=== PATIENT | male | born 1960 | race Caucasian/White ===

== ENCOUNTER → 2017-04-27 | Outpatient (CLI) | payer OTHER ==
--- NOTE | 2017-04-27 12:12 | KCIC ---
Chest radiograph 04/27/2017 12:00 AM INDICATION: Bronchitis COMPARISON: None available TECHNIQUE: Frontal and lateral views of the chest are provided. FINDINGS: The cardiomediastinal silhouette is within normal limits. There are no pleural effusions. There is no pulmonary vascular congestion. There is no pneumothorax. The lungs are clear. Anterior marginal osteophytosis is noted throughout the thoracic spine. IMPRESSION: No acute cardiopulmonary process. Electronically signed by: Jennifer Tam MD (04/27/2017 12:09 PM) [place] [id number]
== END | disposition home or self-care (01) ==
LOC: KCIC 11:16
PROVIDERS: ATTEND Family Medicine
DX: J98.01 Acute bronchospasm (principal); J40 Bronchitis, not specified as acute or chronic
CPT/HCPCS: 71020

== ENCOUNTER → 2019-05-04 | Outpatient (CLI) | payer SELFPAY ==
--- NOTE | 2019-05-04 13:33 | RAD ---
DATE: 05/04/2019 EXAM: DIGITAL DIAGNOSTIC BILATERAL HISTORY: Pain and tenderness of the left breast for the past 3 months since initiation of new medication therapy. COMPARISON: None This study was interpreted with the benefit of Computerized Aided Detection (CAD). Breast Density: HETERO The breast parenchyma is heterogenously dense, which could reduce sensitivity of mammography. Breast parenchyma level C. FINDINGS: Left subareolar breast parenchyma is much greater in extent as compared to the right. No suspicious mass or distortion. Bilateral axillary lymph nodes are present greater on the left. IMPRESSION: Gynecomastia of the left breast. BI-RADS CATEGORY: 1 NEGATIVE RECOMMENDED FOLLOW-UP: CLIN FOLLOW UP IMAGING CLINICALLY INDICATED PQRS compliance statement: Patient information was entered into a reminder system with a target due date for the next mammogram. Mammography is a sensitive method for finding small breast cancers, but it does not detect them all and is not a substitute for careful clinical examination. A negative mammogram does not negate a clinically suspicious finding and should not result in delay in biopsying a clinically suspicious abnormality. "Our facility is accredited by the [employer] Mammography Program."
== END | disposition home or self-care (01) ==
LOC: MAMMO 12:55
PROVIDERS: ATTEND Physician Assistant Medical
DX: N62 Hypertrophy of breast (principal)
CPT/HCPCS: 77066